=== PATIENT | male | born 1940 | race Caucasian/White ===

== ENCOUNTER 2018-07-09 06:39 | Day surgery (SDC) | payer MEDICARE, BC ==
[~2018-07-09] VITALS: Ht 177.8 cm; Wt 89.4 kg
[~2018-07-09 06:39] MED LIST: DIPHEDRYL25 MG PO; FLOMAX0.4 MG PO; MOBIC7.5 MG PO; OMEPRAZOLE20 M1 PO; PROSCAR5 MG PO
[2018-07-09 06:56] LABS: HEMOGLOBIN 14.9 g/dL (13.5-17.5); MCH 31.8 pg (26.0-34.0); MCHC 33.9 g/dL (31.0-37.0); MCV 93.8 fL (80.0-100.0); MEAN PLATELET VOLUME 9.8 fL (7.4-10.4); RBC 4.69 10x6/uL (4.20-6.10); RDW 13.3 % (11.5-14.5); WBC 5.4 10x3/uL (4.8-10.8)
[2018-07-09 09:13] VITALS: BP 139/88; Ht 177.8 cm; Wt 89.4 kg
[2018-07-09] MEDS ORDERED: MIRALAX17 GM PO (10:43)
[2018-07-09] MEDS ORDERED: VALIUM5 MG PO (10:43)
--- NOTE | 2018-07-09 11:40 | NUR ---
REC'D FROM RR. FAMILY AT BEDSIDE. ICE WATER BROUGHT TO PT.
--- NOTE | 2018-07-09 12:10 | NUR ---
FL VICKIEY SERVED TO PY. FAMILY AT BEDSIDE,
--- NOTE | 2018-07-09 12:40 | NUR ---
TOLERATED FL DIET. AMBULATED TO BATHROOM AND VOIDED WITHOUT DIFFICULTY.
--- NOTE | 2018-07-09 13:05 | NUR ---
WRITTEN AND VERBAL DC INST. GIVEN TO PT. VERBALIZED UNDERSTANDING.
--- NOTE | 2018-07-09 13:15 | NUR ---
DC'D HOME WITH FAMILY VIA PRIVATE VEHICLE. TAKEN TO VEHICLE VIA WC. STABLE AT TIME OF DC.
== END 2018-07-09 13:15 | disposition home or self-care (01) ==
LOC: D.OPS 06:39 → D.PAN 09:30 → D.OPS 09:30 → D.PAN 09:40 → D.OPS 09:40
PROVIDERS: Anesthesiology; ATTEND Surgery
DX: K64.5 Perianal venous thrombosis (principal); Z01.812 Encounter for preprocedural laboratory examination

== ENCOUNTER → 2018-07-11 09:42 | Outpatient (CLI) | payer MEDICARE, BC ==
[2018-07-09 09:13] VITALS: BMI 28.3
[~2018-07-11 09:42] MED LIST changes: +MIRALAX17 GM PO; +VALIUM5 MG PO
== END | disposition home or self-care (01) ==
LOC: D.CT 09:42
PROVIDERS: ATTEND Surgery
DX: R91.8 Other nonspecific abnormal finding of lung field (principal)